=== PATIENT | female | born 1980 | race Caucasian/White ===

== ENCOUNTER → 2024-09-18 | Day surgery (SDC) | payer OTHER | END | disposition home or self-care (01) | LOC: FMAMMOTONE 13:08 | PROVIDERS: ATTEND Surgery | PROC: 0HBU3ZX Excision of Left Breast, Percutaneous Approach, Diagnostic (ICD-10-PCS; principal; 2024-09-18) | DX: D05.12 Intraductal carcinoma in situ of left breast (principal); N64.89 Other specified disorders of breast; R92.8 Other abnormal and inconclusive findings on diagnostic imaging of breast | CPT/HCPCS: 19081; 76098-TC-FY; 88305-TC; 88341-TC; 88342-TC ==